=== PATIENT | female | born 1990 | race Caucasian/White ===

== ENCOUNTER 2019-06-01 21:51 | Emergency (ER) | payer OTHER ==
[2019-06-01 22:00] VITALS: RESP 20
[2019-06-01] MEDS ORDERED: SODIUM CHLORIDE 0.9% 1,000 ML IV STA ×2 (22:04→23:24)
[2019-06-01] MEDS ORDERED: METOCLOPRAMIDE 5 MG/ML 2 ML VIAL IVP STA (22:05)
--- NOTE | 2019-06-01 22:17 | ED ---
General Adult HPI - General Chief complaint: Nausea/Vomiting/Diarrhea Stated complaint: Vomiting Time Seen by Provider: 06/01/19 22:02 Source: patient, family Mode of arrival: ambulatory Limitations: no limitations - History of Present Illness Initial comments: Dictation was produced using [employer] dictation software. please excuse any g rammatical, word or spelling errors. Chief Complaint: 29-year-old female presents with nausea vomiting and diarrhea. History of Present Illness: We [id number] female she presents with 2 days of nausea vomiting diarrhea. Patient states she's been a persistent watery diarrhea. She's had more than 10 episodes over the past 48 hours. Patient says had multiple episodes of nonbilious nonbloody emesis. She complains of diffuse abdominal tenderness worse in the lower abdominal area. She states that it's a crampy sensation with constant nature. Denies any vaginal discharge and vaginal bleeding. One week ago patient had intrauterine insemination performed at one of the IVF clinics. States that after the procedure she didn't have any ill effects. Patient has had successful intrauterine insemination twice in the past. Patient has been also having diffuse myalgias. Denies any recent travel. No recent antibiotics. No suspected ingestion of food. Patient's significant other had similar symptoms several days ago however not as severe. The ROS documented in this emergency department record has been reviewed and confirmed by me. Those systems with pertinent positive or negative responses have been documented in the HPI. All other systems are other negative and/or noncontributory. PHYSICAL EXAM: General Impression: Alert and oriented x3, not in acute distress HEENT: Normocephalic atraumatic, extra-ocular movements intact, pupils equal and reactive to light bilaterally, dry mucous membranes Cardiovascular: Heart regular rate and rhythm, S1&S2 audible, no murmurs, rubs or gallops Chest: Lungs clear to auscultation bilaterally, no rhonchi, no wheeze, no rales Abdomen: Bowel sounds present, abdomen soft, non-tender, non-distended, no organomegaly Musculoskeletal: Pulses present and equal in all extremities, no peripheral edema Motor: no focal deficits noted Neurological: CN II-XII grossly intact, no focal motor or sensory deficits noted Skin: Intact with no visualized rashes Psych: Normal affect and mood ED course: 29-year-old feel presents with clinical presentation consistent with gastroenteritis. Vital signs upon arrival shows heart rate of 102, rest of vital signs within acceptable limits. Laboratory evaluation obtained. Hemoglobin of 16.6 likely from hemoconcentration. Rest of CBC is grossly unremarkable. Metabolic panel shows things within acceptable limits. Urinalysis shows 4+ ketones no other acute processes. Discussed with patient that because she is having lower abdominal symptoms I recommend performing a pelvic exam. Patient refused and didn't feel like it was indicated. Patient's coca presentation is likely secondary gastroenteritis. Her beta Quant is elevated at 6.5 which would indicate that patient is early . She requests that she wanted to be discharged home. She completed 1 L normal saline bolus of fluid. She is tolerating by mouth at bedside. She has not had any episodes of diarrhea here in emergency department. Patient wants to be discharged without any further care. She understands the s ignificance and importance of adequate hydration especially around the . Patient understands that we did not do a complete workup and still wants to be discharged. Patient prescription for antinausea medications and antidiarrhea medications. Patient told to start taking vitamins. - Related Data Home Medications Medication Instructions Recorded Confirmed Citalopram Hydrobromide [CeleXA] 20 mg PO DAILY 06/01/19 06/01/19 Levothyroxine Sodium [Synthroid] 100 mcg PO DAILY 06/01/19 06/01/19 Progesterone, Micronized 200 mg PO BID 06/01/19 06/01/19 [Progesterone] Previous Rx's Medication Instructions Recorded Doxylamine/Pyridoxine HCl (B6) 1 tab PO TID PRN #12 tab 06/01/19 [Silvia Seth 10-10 mg Tablet] Loperamide HCl [Loperamide] 2 mg PO TID PRN #12 capsule 06/01/19 Allergies Allergy/AdvReac Type Severity Reaction Status Date / Time morphine Allergy Swelling Verified 06/01/19 22:44 Review of Systems ROS Statement: Those systems with pertinent positive or pertinent negative responses have been documented in the HPI. ROS Other: All systems not noted in ROS Statement are negative. Past Medical History Past Medical History: No Reported History Additional Past Medical History / Comment(s): 4th degree after delivery of first child History of Any Multi-Drug Resistant Organisms: None Reported Past Surgical History: Section Past Anesthesia/Blood Transfusion Reactions: No Reported Reaction Past Psychological History: Anxiety Smoking Status: Never smoker Past Alcohol Use History: None Reported Past Drug Use History: Unable to Obtain - Past Family History Father History Unknown: Yes Family Medical History: No Reported History General Exam Limitations: no limitations Course Vital Signs 06/01/19 21:57 Temperature 99 F Pulse Rate 102 H Respiratory 20 Rate Blood Pressure 100/74 O2 Sat by Pulse 100 Oximetry Medical Decision Making - Lab Data Result diagrams: 06/01/19 22:24 06/01/19 22:24 Lab Results 06/01/19 06/01/19 06/01/19 Range/Units 22:05 22:24 22:24 WBC 10.0 (3.8-10.6) k/uL RBC 5.48 H (3.80-5.40) m/uL Hgb 16.6 H (11.4-16.0) gm/dL Hct 48.6 H (34.0-46.0) % MCV 88.6 (80.0-100.0) fL MCH 30.3 (25.0-35.0) pg MCHC 34.2 (31.0-37.0) g/dL RDW 12.5 (11.5-15.5) % Plt Count 214 (150-450) k/uL Neutrophils % 91 % Lymphocytes % 4 % Monocytes % 2 % Eosinophils % 1 % Basophils % 1 % Neutrophils # 9.1 H (1.3-7.7) k/uL Lymphocytes # 0.4 L (1.0-4.8) k/uL Monocytes # 0.2 (0-1.0) k/uL Eosinophils # 0.1 (0-0.7) k/uL Basophils # 0.1 (0-0.2) k/uL Sodium 141 (137-145) mmol/L Potassium 3.9 (3.5-5.1) mmol/L Chloride 105 (98-107) mmol/L Carbon Dioxide 22 (22-30) mmol/L Anion Gap 14 mmol/L BUN 18 H (7-17) mg/dL Creatinine 0.89 (0.52-1.04) mg/dL Est GFR (CKD-EPI)AfAm >90 (>60 ml/min/1.73 sqM) Est GFR (CKD-EPI)NonAf 87 (>60 ml/min/1.73 sqM) Glucose 103 H (74-99) mg/dL Calcium 9.7 (8.4-10.2) mg/dL Magnesium 1.6 (1.6-2.3) mg/dL Total Bilirubin 1.1 (0.2-1.3) mg/dL AST 24 (14-36) U/L ALT 18 (9-52) U/L Alkaline Phosphatase 78 (38-126) U/L Total Protein 8.6 H (6.3-8.2) g/dL Albumin 4.9 (3.5-5.0) g/dL HCG, Quant 6.5 mIU/mL Urine Color Yellow Urine Appearance Cloudy H (Clear) Urine pH 5.5 (5.0-8.0) Ur Specific [employer] 1.034 (1.001-1.035) Urine Protein 1+ H (Negative) Urine Glucose (UA) Negative (Negative) Urine Ketones 4+ H (Negative) Urine Blood Negative (Negative) Urine Nitrite Negative (Negative) Urine Bilirubin Negative (Negative) Urine Urobilinogen <2.0 (<2.0) mg/dL Ur Leukocyte Esterase Negative (Negative) Urine RBC 2 (0-5) /hpf Urine WBC 5 (0-5) /hpf Ur Squamous Epith Cells 4 (0-4) /hpf Urine Bacteria Rare H (None) /hpf Urine Mucus Many H (None) /hpf Disposition Clinical Impression: Gastroenteritis Disposition: HOME SELF-CARE Condition: Good Instructions (If sedation given, give patient instructions): Acute Diarrhea (ED), Acute Nausea and Vomiting (ED) Additional Instructions: take vitamins, follow up with [facility] Prescriptions: Doxylamine/Pyridoxine HCl (B6) [Silvia Seth 10-10 mg Tablet] 1 tab PO TID PRN #12 tab PRN Reason: Nausea Loperamide HCl [Loperamide] 2 mg PO TID PRN #12 capsule PRN Reason: Diarrhea Is patient prescribed a controlled substance at d/c from ED?: No Referrals: Devi Pickens MD [Primary Care Provider] - 1-2 days Time of Disposition: 23:44
[2019-06-01 22:58] LABS: Basophils # (A) 0.1 k/uL (0-0.2); Basophils % (A) 1 %; Eosinophils # (A) 0.1 k/uL (0-0.7); Eosinophils % (A) 1 %; HCT 48.6 % (34.0-46.0); HGB 16.6 gm/dL (11.4-16.0); Lymphocytes # (A) 0.4 k/uL (1.0-4.8); Lymphocytes % (A) 4 %; MCH 30.3 pg (25.0-35.0); MCHC 34.2 g/dL (31.0-37.0); MCV 88.6 fL (80.0-100.0); Mean Platelet Volume 7.4; Monocytes # (A) 0.2 k/uL (0-1.0); Monocytes % (A) 2 %; Neutrophils # (A) 9.1 k/uL (1.3-7.7); Neutrophils % (A) 91 %; Platelet Count 214 k/uL (150-450); RBC 5.48 m/uL (3.80-5.40); RDW 12.5 % (11.5-15.5)
[2019-06-01 22:59] LABS: Appearance,Urine Cloudy (Clear); Bacteria,Urine Rare /hpf; Bilirubin,Urine Negative (Negative); Blood,Urine Negative (Negative); Color,Urine Yellow; Glucose,Urine (UA) Negative (Negative); Ketones,Urine 4+ (Negative); Leukocyte Esterase,Urine Negative (Negative); Mucus,Urine Many /hpf; Nitrite,Urine Negative (Negative); PH, Urine 5.5 (5.0-8.0); Protein,Urine 1+ (Negative); RBC,Urine 2 /hpf (0-5); Specific Gravity,Urine 1.034 (1.001-1.035); Squamous Epithelial Cell,Urine 4 /hpf (0-4); Urobilinogen,Urine <2.0 mg/dL (<2.0); WBC,Urine 5 /hpf (0-5)
[2019-06-01 23:06] LABS: ALT 18 U/L (9-52); AST 24 U/L (14-36); African American GFR (CKD) >90 (>60 ml/min/1.73 sqM); Albumin 4.9 g/dL (3.5-5.0); Alkaline Phosphatase 78 U/L (38-126); Anion Gap 14 mmol/L; Blood Urea Nitrogen 18 mg/dL (7-17); Calcium 9.7 mg/dL (8.4-10.2); Carbon Dioxide 22 mmol/L (22-30); Chloride 105 mmol/L (98-107); Glucose 103 mg/dL (74-99); Magnesium 1.6 mg/dL (1.6-2.3); Potassium 3.9 mmol/L (3.5-5.1); Sodium 141 mmol/L (137-145); Total Bilirubin 1.1 mg/dL (0.2-1.3); Total Protein 8.6 g/dL (6.3-8.2)
[2019-06-01 23:23] LABS: HCG,Quantitative Serum 6.5 mIU/mL
[2019-06-01 23:46] VITALS: BP 118/64; PULSE 101; TEMP 97.7
== END 2019-06-01 23:51 | disposition home or self-care (01) ==
LOC: EC 21:51
DX: K52.9 Noninfective gastroenteritis and colitis, unspecified (principal); M79.10 Myalgia, unspecified site; F41.9 Anxiety disorder, unspecified; Z79.890 Hormone replacement therapy; Z79.899 Other long term (current) drug therapy; Z88.5 Allergy status to narcotic agent; Z53.29 Procedure and treatment not carried out because of patient's decision for other reasons
CPT/HCPCS: 36415; 80053; 83735; 85025; 81001; 84702; 99284; 96374; 96361; J2765

== ENCOUNTER 2019-08-30 14:50 | Emergency (ER) | payer OTHER ==
[2019-08-30] MEDS ORDERED: SODIUM CHLORIDE 0.9% 2,000 ML IV STA (16:35)
[2019-08-30] MEDS ORDERED: ONDANSETRON 4 MG/2 ML VIAL IVP STA (16:35)
[2019-08-30] MEDS ORDERED: FAMOTIDINE 20 MG/2 ML VIAL IV STA (16:37)
--- NOTE | 2019-08-30 16:39 | ED ---
General Adult HPI - General Chief complaint: Nausea/Vomiting/Diarrhea Stated complaint: 16 wks / Dehydration Time Seen by Provider: 08/30/19 16:10 Source: patient, RN notes reviewed Mode of arrival: ambulatory Limitations: no limitations - History of Present Illness Initial comments: Patient is a pleasant 29-year-old female presenting to the emergency Department with complaints of vomiting. Symptoms have been occurring for the past 3 months. Patient is proximal he 16 weeks gravid. Patient complains of recurrent nausea and vomiting and has been diagnosed with hyperemesis gravidarum. Patient does see Dr. Farrar. Patient denies any pelvic pain or vaginal bleeding. patient diarrhea. Patient has had some promethazine without improvement of symptoms. - Related Data Home Medications Medication Instructions Recorded Confirmed Citalopram Hydrobromide [CeleXA] 20 mg PO DAILY 06/01/19 06/01/19 Levothyroxine Sodium [Synthroid] 100 mcg PO DAILY 06/01/19 06/01/19 Progesterone, Micronized 200 mg PO BID 06/01/19 06/01/19 [Progesterone] Previous Rx's Medication Instructions Recorded Doxylamine/Pyridoxine HCl (B6) 1 tab PO TID PRN #12 tab 06/01/19 [Silvia Seth 10-10 mg Tablet] Loperamide HCl [Loperamide] 2 mg PO TID PRN #12 capsule 06/01/19 Oseltamivir [Tamiflu] 75 mg PO Q12HR #9 cap 08/30/19 Allergies Allergy/AdvReac Type Severity Reaction Status Date / Time morphine Allergy Swelling Verified 06/01/19 22:44 Review of Systems ROS Statement: Those systems with pertinent positive or pertinent negative responses have been documented in the HPI. ROS Other: All systems not noted in ROS Statement are negative. Constitutional: Reports: fever (Fever last night with upper respiratory symptoms similar to her child) Eyes: Denies: eye pain ENT: Reports: congestion. Denies: ear pain Respiratory: Reports: cough Cardiovascular: Denies: palpitations Endocrine: Denies: fatigue Gastrointestinal: Reports: nausea, vomiting Genitourinary: Denies: dysuria Musculoskeletal: Denies: back pain Skin: Denies: rash Neurological: Denies: weakness Past Medical History Past Medical History: No Reported History Additional Past Medical History / Comment(s): 4th degree after delivery of first child History of Any Multi-Drug Resistant Organisms: None Reported Past Surgical History: Section Past Anesthesia/Blood Transfusion Reactions: No Reported Reaction Past Psychological History: Anxiety Smoking Status: Never smoker Past Alcohol Use History: None Reported Past Drug Use History: Unable to Obtain - Past Family History Father History Unknown: Yes Family Medical History: No Reported History General Exam Limitations: no limitations General appearance: alert, in no apparent distress Head exam: Present: normocephalic Eye exam: Present: normal appearance, PERRL ENT exam: Present: normal oropharynx Neck exam: Present: normal inspection Respiratory exam: Present: normal lung sounds bilaterally Cardiovascular Exam: Present: tachycardia GI/Abdominal exam: Present: soft. Absent: distended, tenderness Extremities exam: Present: normal inspection Neurological exam: Present: alert Psychiatric exam: Present: normal affect, normal mood Skin exam: Present: normal color Course Vital Signs 08/30/19 08/30/19 08/30/19 15:01 18:15 20:04 Temperature 98.1 F 100.9 F H Pulse Rate 121 H 111 H 103 H Respiratory 18 18 16 Rate Blood Pressure 114/78 123/72 121/72 O2 Sat by Pulse 97 100 100 Oximetry Medical Decision Making - Medical Decision Making Patient reevaluated and updated. Patient was eating soup in bed. - Lab Data Result diagrams: 08/30/19 16:12 08/30/19 16:12 Lab Results 08/30/19 08/30/19 08/30/19 Range/Units 16:12 16:12 18:00 WBC 5.2 (3.8-10.6) k/uL RBC 4.63 (3.80-5.40) m/uL Hgb 14.2 (11.4-16.0) gm/dL Hct 41.2 (34.0-46.0) % MCV 88.9 (80.0-100.0) fL MCH 30.7 (25.0-35.0) pg MCHC 34.5 (31.0-37.0) g/dL RDW 13.1 (11.5-15.5) % Plt Count 190 (150-450) k/uL Neutrophils % 82 % Lymphocytes % 6 % Monocytes % 8 % Eosinophils % 0 % Basophils % 3 % Neutrophils # 4.3 (1.3-7.7) k/uL Lymphocytes # 0.3 L (1.0-4.8) k/uL Monocytes # 0.4 (0-1.0) k/uL Eosinophils # 0.0 (0-0.7) k/uL Basophils # 0.2 (0-0.2) k/uL Sodium 137 (137-145) mmol/L Potassium 4.0 (3.5-5.1) mmol/L Chloride 105 (98-107) mmol/L Carbon Dioxide 20 L (22-30) mmol/L Anion Gap 12 mmol/L BUN 7 (7-17) mg/dL Creatinine 0.60 (0.52-1.04) mg/dL Est GFR (CKD-EPI)AfAm >90 (>60 ml/min/1.73 sqM) Est GFR (CKD-EPI)NonAf >90 (>60 ml/min/1.73 sqM) Glucose 82 (74-99) mg/dL Calcium 9.4 (8.4-10.2) mg/dL Total Bilirubin 0.8 (0.2-1.3) mg/dL AST 26 (14-36) U/L ALT 14 (4-34) U/L Alkaline Phosphatase 81 (38-126) U/L Total Protein 7.8 (6.3-8.2) g/dL Albumin 4.3 (3.5-5.0) g/dL Lipase 56 (23-300) U/L HCG, Quant 41148.6 mIU/mL Urine Color Yellow Urine Appearance Clear (Clear) Urine pH 5.5 (5.0-8.0) Ur Specific [place] 1.032 (1.001-1.035) Urine Protein 1+ H (Negative) Urine Glucose (UA) Negative (Negative) Urine Ketones 4+ H (Negative) Urine Blood Negative (Negative) Urine Nitrite Negative (Negative) Urine Bilirubin Negative (Negative) Urine Urobilinogen 2.0 (<2.0) mg/dL Ur Leukocyte Esterase Negative (Negative) Urine RBC 6 H (0-5) /hpf Urine WBC 3 (0-5) /hpf Ur Squamous Epith Cells 2 (0-4) /hpf Hyaline Casts 1 (0-2) /lpf Urine Mucus Many H (None) /hpf Influenza Type A RNA (Not Detectd) Influenza Type B (PCR) (Not Detectd) 01/10/20 Range/Units 18:00 WBC (3.8-10.6) k/uL RBC (3.80-5.40) m/uL Hgb (11.4-16.0) gm/dL Hct (34.0-46.0) % MCV (80.0-100.0) fL MCH (25.0-35.0) pg MCHC (31.0-37.0) g/dL RDW (11.5-15.5) % Plt Count (150-450) k/uL Neutrophils % % Lymphocytes % % Monocytes % % Eosinophils % % Basophils % % Neutrophils # (1.3-7.7) k/uL Lymphocytes # (1.0-4.8) k/uL Monocytes # (0-1.0) k/uL Eosinophils # (0-0.7) k/uL Basophils # (0-0.2) k/uL Sodium (137-145) mmol/L Potassium (3.5-5.1) mmol/L Chloride (98-107) mmol/L Carbon Dioxide (22-30) mmol/L Anion Gap mmol/L BUN (7-17) mg/dL Creatinine (0.52-1.04) mg/dL Est GFR (CKD-EPI)AfAm (>60 ml/min/1.73 sqM) Est GFR (CKD-EPI)NonAf (>60 ml/min/1.73 sqM) Glucose (74-99) mg/dL Calcium (8.4-10.2) mg/dL Total Bilirubin (0.2-1.3) mg/dL AST (14-36) U/L ALT (4-34) U/L Alkaline Phosphatase (38-126) U/L Total Protein (6.3-8.2) g/dL Albumin (3.5-5.0) g/dL Lipase (23-300) U/L HCG, Quant mIU/mL Urine Color Urine Appearance (Clear) Urine pH (5.0-8.0) Ur Specific [place] (1.001-1.035) Urine Protein (Negative) Urine Glucose (UA) (Negative) Urine Ketones (Negative) Urine Blood (Negative) Urine Nitrite (Negative) Urine Bilirubin (Negative) Urine Urobilinogen (<2.0) mg/dL Ur Leukocyte Esterase (Negative) Urine RBC (0-5) /hpf Urine WBC (0-5) /hpf Ur Squamous Epith Cells (0-4) /hpf Hyaline Casts (0-2) /lpf Urine Mucus (None) /hpf Influenza Type A RNA Not Detected (Not Detectd) Influenza Type B (PCR) Detected H (Not Detectd) Disposition Clinical Impression: Hyperemesis gravidarum, Influenza Disposition: HOME SELF-CARE Condition: Stable Instructions (If sedation given, give patient instructions): Influenza (ED), Hyperemesis Gravidarum (ED) Additional Instructions: Please follow-up with your COMPLIANCE NURSE as well as primary care physician in the next couple days for recheck. Return for uncontrolled fevers, difficulty breathing, uncontrolled vomiting, worsening symptoms or other concerns. Prescription has been sent to [facility] pharmacy Prescriptions: Oseltamivir [Tamiflu] 75 mg PO Q12HR #9 cap Is patient prescribed a controlled substance at d/c from ED?: No Referrals: Devi Pickens MD [Primary Care Provider] - 1-2 days Yinka Kam MD [STAFF PHYSICIAN] - 1-2 days Time of Disposition: 20:31
[2019-08-30 17:12] LABS: Basophils # (A) 0.2 k/uL (0-0.2); Basophils % (A) 3 %; Eosinophils % (A) 0 %; HCT 41.2 % (34.0-46.0); HGB 14.2 gm/dL (11.4-16.0); Lymphocytes # (A) 0.3 k/uL (1.0-4.8); Lymphocytes % (A) 6 %; MCH 30.7 pg (25.0-35.0); MCHC 34.5 g/dL (31.0-37.0); MCV 88.9 fL (80.0-100.0); Mean Platelet Volume 10.6; Monocytes # (A) 0.4 k/uL (0-1.0); Monocytes % (A) 8 %; Neutrophils # (A) 4.3 k/uL (1.3-7.7); Neutrophils % (A) 82 %; Platelet Count 190 k/uL (150-450); RBC 4.63 m/uL (3.80-5.40); RDW 13.1 % (11.5-15.5); WBC 5.2 k/uL (3.8-10.6)
[2019-08-30 17:14] LABS: ALT 14 U/L (4-34); AST 26 U/L (14-36); African American GFR (CKD) >90 (>60 ml/min/1.73 sqM); Albumin 4.3 g/dL (3.5-5.0); Alkaline Phosphatase 81 U/L (38-126); Anion Gap 12 mmol/L; Blood Urea Nitrogen 7 mg/dL (7-17); Calcium 9.4 mg/dL (8.4-10.2); Carbon Dioxide 20 mmol/L (22-30); Chloride 105 mmol/L (98-107); Glucose 82 mg/dL (74-99); Non-African American GFR(CKD) >90 (>60 ml/min/1.73 sqM); Sodium 137 mmol/L (137-145); Total Bilirubin 0.8 mg/dL (0.2-1.3); Total Protein 7.8 g/dL (6.3-8.2)
[2019-08-30] MEDS ORDERED: ACETAMINOPHEN TAB 500 MG TAB PO STA (17:39)
[2019-08-30 18:16] VITALS: TEMP 100.9
[2019-08-30 18:24] LABS: HCG,Quantitative Serum 82611.6 mIU/mL
[2019-08-30 19:58] LABS: Appearance,Urine Clear (Clear); Bilirubin,Urine Negative (Negative); Blood,Urine Negative (Negative); Color,Urine Yellow; Glucose,Urine (UA) Negative (Negative); Hyaline Casts,Urine 1 /lpf (0-2); Ketones,Urine 4+ (Negative); Leukocyte Esterase,Urine Negative (Negative); Mucus,Urine Many /hpf; Nitrite,Urine Negative (Negative); PH, Urine 5.5 (5.0-8.0); Protein,Urine 1+ (Negative); RBC,Urine 6 /hpf (0-5); Specific Gravity,Urine 1.032 (1.001-1.035); Squamous Epithelial Cell,Urine 2 /hpf (0-4); WBC,Urine 3 /hpf (0-5)
[2019-08-30 20:08] VITALS: BP 121/72
[2019-08-30] MEDS ORDERED: OSELTAMIVIR 75 MG CAP PO STA (20:33)
[2019-08-30 21:10] VITALS: PULSE 96; RESP 18
== END 2019-08-30 21:11 | disposition home or self-care (01) ==
LOC: EC 14:50
DX: O99.512 Diseases of the respiratory system complicating pregnancy, second trimester (principal); J11.1 Influenza due to unidentified influenza virus with other respiratory manifestations; O21.0 Mild hyperemesis gravidarum; O99.89 Other specified diseases and conditions complicating pregnancy, childbirth and the puerperium; R00.0 Tachycardia, unspecified; R19.7 Diarrhea, unspecified; O99.342 Other mental disorders complicating pregnancy, second trimester; F41.9 Anxiety disorder, unspecified; Z88.5 Allergy status to narcotic agent; Z79.890 Hormone replacement therapy; Z79.899 Other long term (current) drug therapy; Z98.890 Other specified postprocedural states; Z3A.16 16 weeks gestation of pregnancy
CPT/HCPCS: 99284; 96374; 96375; 96361; 36415; 80053; 83690; 85025; 81001; 84702; 87502; J2405

== ENCOUNTER → 2019-09-02 | Outpatient (CLI) | payer OTHER ==
[~2019-09-02] MED LIST: SODIUM CHLORIDE 0.9% 1,000 ML IV ONE; SODIUM CHLORIDE 0.9% 1,000 ML IV SCH
[2019-09-02 15:01] VITALS: BP 121/85; PULSE 54; RESP 16; TEMP 98.3
== END | disposition home or self-care (01) ==
LOC: PROCWHC3 14:14
PROVIDERS: ATTEND Obstetrics & Gynecology
DX: Z34.82 Encounter for supervision of other normal pregnancy, second trimester (principal); J10.1 Influenza due to other identified influenza virus with other respiratory manifestations
CPT/HCPCS: 96360; 96361

== ENCOUNTER 2020-02-11 09:55 | Inpatient (IN) | payer OTHER ==
[2020-02-06 14:56] VITALS: BMI 27.3
[2020-02-11] MEDS ORDERED: CITRIC ACID-SODIUM CITRATE 15 ML CUP PO ONE (10:12)
[2020-02-11] MEDS ORDERED: LACTATED RINGERS 1,000 ML IV ONE (10:12)
[2020-02-11 10:43] LABS: Basophils % (A) 0 %; Eosinophils # (A) 0.1 k/uL (0-0.7); Eosinophils % (A) 1 %; HCT 37.5 % (34.0-46.0); HGB 12.5 gm/dL (11.4-16.0); Lymphocytes % (A) 10 %; MCH 27.2 pg (25.0-35.0); MCHC 33.3 g/dL (31.0-37.0); MCV 81.7 fL (80.0-100.0); Mean Platelet Volume 9.2; Monocytes # (A) 0.5 k/uL (0-1.0); Monocytes % (A) 6 %; Neutrophils # (A) 7.7 k/uL (1.3-7.7); Neutrophils % (A) 81 %; Platelet Count 193 k/uL (150-450); RDW 15.3 % (11.5-15.5); WBC 9.5 k/uL (3.8-10.6)
--- NOTE | 2020-02-11 12:09 | P.HPOB ---
History of Present Illness H&P Date: 02/11/20 Chief Complaint: 39-0/7 weeks, previous section, requesting repeat The patient is a 30-year-old 3 para 2001, in her first delivery, had a significant fourth degree laceration and subsequently requested deliveries for each thereafter. As result she underwent section for her second and is now requesting repeat. Her pregnancies have been achieved with in vitro fertilization and that his established her due dates. She otherwise is known to have history of hypothyroidism on Synthroid. On labor and delivery, all signs reassuring. Group B strep status is negative. Obstetrical history: 3 para 2001 with 1 term vaginal delivery with fourth degree laceration followed by a term section done electively. Current statistics are listed in history of present illness. EDC of 02/18/2020 was established by in vitro fertilization dating parameters. Laboratory workup demonstrates a blood type of O+ with a negative antibody screen. Rubella status is immune. The remainder of the laboratory workup was within normal limits. One hour Glucola was normal and group B strep status is negative. Gynecologic history: Unremarkable with no history of any infections to include STDs. Review of Systems Review of systems is confined to history of present illness. Past Medical History Past Medical History: No Reported History Additional Past Medical History / Comment(s): hyperemesis, prev hypothyroid, 4th degree after delivery of first child History of Any Multi-Drug Resistant Organisms: None Reported Past Surgical History: Section Past Anesthesia/Blood Transfusion Reactions: No Reported Reaction Past Psychological History: Anxiety Smoking Status: Never smoker Past Alcohol Use History: None Reported Past Drug Use History: None Reported - Past Family History Father History Unknown: Yes Family Medical History: No Reported History Medications and Allergies Home Medications Medication Instructions Recorded Confirmed Type Esomeprazole Magnesium [NexIUM] 250 mg PO DAILY 02/06/20 02/11/20 History Iron 27 mg PO DAILY 02/06/20 02/11/20 History Promethazine [Phenergan] 25 mg PO DAILY 02/06/20 02/11/20 History Zolpidem [Ambien] 2.5 mg PO HS 02/06/20 02/11/20 History Allergies Allergy/AdvReac Type Severity Reaction Status Date / Time morphine Allergy Swelling Verified 02/11/20 10:07 Exam Vital Signs Temp Pulse Resp BP Pulse Ox 02/11/20 10:16 97.9 F 115 H 18 144/85 97 Intake and Output 02/10/20 02/11/20 02/11/20 22:59 06:59 14:59 Other: Weight 79.379 kg In general, this is a well-developed, well-nourished white female in no acute d istress. Her heart has a regular rhythm and rate without murmur. Her lungs are clear to auscultation bilaterally in all cummings. Her abdomen is gravid, nondistended, has normal active bowel sounds, is soft, nontender, and without any palpable masses aside from uterine fundus. Her extremities are without any cyanosis, clubbing, or edema and are nontender to palpation bilaterally. Digital cervical examination is deferred. Results Result Diagrams: 02/11/20 10:20 Assessment and Plan (1) Term Current Visit: Yes Status: Acute Code(s): Z34.90 - ENCNTR FOR SUPRVSN OF NORMAL , UNSP, UNSP TRIMESTER SNOMED Code(s): 24196564 (2) Previous section Current Visit: Yes Status: Acute Code(s): Z98.891 - HISTORY OF UTERINE SCAR FROM PREVIOUS SURGERY SNOMED Code(s): 519117368 Plan: We will proceed to the operating room room for repeat low transverse section. The risks and complications have been discussed and she has understood and agrees to proceed.
[2020-02-11] MEDS ORDERED: PHENYLEPHRINE-0.9% NACL SYG 1 MG/10 ML SYRINGE ONE (12:12)
[2020-02-11] MEDS ORDERED: WATER FOR INJECTION, STERILE 10 ML VIAL IV ONE (12:12)
[2020-02-11] MEDS ORDERED: DEXAMETHASONE SOD PHOSPHATE 10 MG/ML 1 ML VIAL ONE (12:12)
[2020-02-11] MEDS ORDERED: fentaNYL (PF) 50 MCG/ML 2 ML AMP ONE (12:12)
[2020-02-11] MEDS ORDERED: HYDROmorphone (PF) 1 MG/ML ONE (12:12)
[2020-02-11] MEDS ORDERED: KETOROLAC 30 MG/ML 1 ML VIAL ONE (12:12)
[2020-02-11] MEDS ORDERED: OXYTOCIN 10 UNIT/ML 1 ML VIAL ONE (12:12)
[2020-02-11] MEDS ORDERED: ONDANSETRON 4 MG/2 ML VIAL ONE (12:12)
[2020-02-11] MEDS ORDERED: ONDANSETRON 4 MG/2 ML VIAL IVP PRN (12:44)
[2020-02-11] MEDS ORDERED: NALOXONE 0.4 MG/ML 1 ML VIAL IV PRN (12:44)
[2020-02-11] MEDS ORDERED: diphenhydrAMINE 50 MG/ML 1 ML VIAL IVP PRN ×2 (12:44→12:59)
[2020-02-11] MEDS ORDERED: LANOLIN CREAM 5 GM TUBE TOPICAL PRN (12:59)
[2020-02-11] MEDS ORDERED: HYDROcodone/APAP 5-325MG 1 EACH TAB PO PRN (12:59)
[2020-02-11] MEDS ORDERED: ACETAMINOPHEN IV (For NPO) 1,000 MG in EMPTY BAG 1 BAG IVPB ONE (12:59)
[2020-02-11] MEDS ORDERED: diphenhydrAMINE 50 MG CAP PO PRN (12:59)
[2020-02-11] MEDS ORDERED: ACETAMINOPHEN TAB 325 MG TAB PO PRN (12:59)
[2020-02-11] MEDS ORDERED: ZOLPIDEM 5 MG TAB PO PRN (12:59)
[2020-02-11] MEDS ORDERED: diphenhydrAMINE 25 MG CAP PO PRN (12:59)
[2020-02-11] MEDS ORDERED: METOCLOPRAMIDE 5 MG/ML 2 ML VIAL IVP PRN (12:59)
[2020-02-11] MEDS ORDERED: OXYTOCIN 20 UNITS/1000 ML NS 1,000 ML IV SCH (13:00)
--- NOTE | 2020-02-11 13:11 | P.OP ---
Date of Procedure: 02/11/20 Preoperative Diagnosis: #1. 39-0/7 weeks, previous section, requesting repeat Postoperative Diagnosis: Same Procedure(s) Performed: #1. Repeat low transverse section Anesthesia: spinal Surgeon: Yinka Kam Cook Relief #1: Starr Brown Estimated Blood Loss (ml): 400 IV fluids (ml): 1,000 Urine output (ml): 100 Pathology: none sent Condition: stable Disposition: floor Operative Findings: The patient was taken to the operating room where she was delivered of a viable 8 lbs. 3 oz. baby boy with Apgars of 9 at 1 minute and 9 at 5 minutes delivered in the left occiput anterior position. The placenta was delivered spontaneously, intact, and grossly normal with a grossly normal three-vessel cord. The uterus, tubes, and ovaries were entirely normal to inspection. There was minimal scarring throughout the entire procedure. Description of Procedure: The patient was prepped and draped in usual fashion after spinal anesthesia was administered by the anesthesiologist. A Pfannenstiel incision was made through pre-existing scar and extended into the abdominal cavity without difficulty. The bladder peritoneum was elevated, incised, and reflected distally. A 2 cm incision was made in the transverse plane of the lower uterine segment to enter the uterus at which time a significant amount of clear fluid was noted. The incision was extended in both directions using the bandage scissors. The head was delivered up and through the incision where the nose and mouth were thoroughly suctioned. Remainder of the was delivered onto the field where the cord was doubly clamped, cut, and the infant passed resuscitative measures with weight and Apgars as noted above. A segment of cord was doubly clamped, cut, and set aside should cord gases become necessary. The placenta was delivered spontaneously and intact as noted above. The uterus was exteriorized and the interior cavity of the uterus swept of any remaining placental or membranous fragments. The margins of the incision were grasped with Zambrano clamps and the incision closed with a single running locking stitch of 0 chromic catgut from margin to margin. There was one point of bleeding at the site of a sinus near the right angle of the incision which was made hemostatic with a erpynk-ov-purdj stitch of 0 chromic catgut. The posterior cul-de-sac was suctioned with a guard as well as a laparotomy sponge. The incision was reexamined and found to be hemostatic. The uterus was replaced within the abdominal cavity and the gutters swept of any remaining blood, fluid, or clot. The surgical site was again reexamined and found to be hemostatic. The parietal peritoneum was loosely reapproximated in the layer of muscles examined and made hemostatic with the Bovie. The fascia was closed with a single running stitch of 0 Vicryl from from margin to margin. The subcutaneous tissues were irrigated, made hemostatic with the Bovie and not closed as they were very thin. The skin was reapproximated with a running subcuticular stitch of 4-0 Vicryl from margin to margin followed by half-inch Steri-Strips placed with Mastisol. Estimated blood loss for the case was approximately 400 mL. There were no complications. All sponge, instrument, and needle counts were correct. The patient tolerated the procedure well and proceeded to the recovery room in stable condition. Both mother and infant are resting comfortably in recovery.
[2020-02-11] MEDS: HYDROmorphone PCA 10 MG/50 ML BAG IV PRN ×2 (14:27→23:07)
[2020-02-11] MEDS ORDERED: BUTORPHANOL 1 MG/ML 1 ML VIAL IV STA (14:47)
[2020-02-11] MEDS: LACTATED RINGERS 1,000 ML IV SCH ×4 (18:48→23:11)
[2020-02-11] MEDS: KETOROLAC 30 MG/ML 1 ML VIAL IVP PRN (18:48)
[2020-02-11] MEDS: SENNOSIDES-DOCUSATE SODIUM 1 EACH TAB PO SCH (23:11)
[2020-02-12] MEDS: KETOROLAC 30 MG/ML 1 ML VIAL IVP PRN (01:31)
[2020-02-12] MEDS: LACTATED RINGERS 1,000 ML IV SCH ×2 (02:45→14:28)
[2020-02-12 06:26] LABS: Basophils % (A) 0 %; Eosinophils # (A) 0.1 k/uL (0-0.7); Eosinophils % (A) 1 %; HCT 35.3 % (34.0-46.0); HGB 11.8 gm/dL (11.4-16.0); Lymphocytes # (A) 1.2 k/uL (1.0-4.8); Lymphocytes % (A) 9 %; MCH 27.9 pg (25.0-35.0); MCHC 33.4 g/dL (31.0-37.0); MCV 83.4 fL (80.0-100.0); Mean Platelet Volume 8.9; Monocytes # (A) 0.8 k/uL (0-1.0); Monocytes % (A) 6 %; Neutrophils # (A) 11.4 k/uL (1.3-7.7); Neutrophils % (A) 84 %; Platelet Count 160 k/uL (150-450); RBC 4.24 m/uL (3.80-5.40); RDW 15.3 % (11.5-15.5); WBC 13.7 k/uL (3.8-10.6)
[2020-02-12] MEDS: HYDROmorphone PCA 10 MG/50 ML BAG IV PRN (07:37)
--- NOTE | 2020-02-12 08:44 | P.PNOBGPC ---
Subjective - Subjective Patient reports: Reports appetite normal, Reports voiding normally, Reports pain well controlled, Reports ambulating normally : doing well Objective - Vital Signs Latest vital signs: Vital Signs Temp Pulse Resp BP Pulse Ox 02/12/20 08:00 97.6 F 73 16 117/68 02/12/20 04:00 97.6 F 61 16 101/81 97 02/12/20 00:00 97.9 F 59 L 14 115/61 97 02/11/20 20:00 98.5 F 65 16 132/68 96 02/11/20 18:55 16 98 02/11/20 18:30 97.6 F 80 16 117/70 02/11/20 17:44 98 02/11/20 15:36 18 98 02/11/20 15:00 99.4 F 90 18 121/71 02/11/20 14:29 95 22 127/76 98 02/11/20 14:00 75 22 153/66 98 02/11/20 13:45 87 20 131/67 99 02/11/20 13:44 18 98 02/11/20 13:30 93 18 126/59 02/11/20 13:14 93 18 132/60 97 02/11/20 13:05 98 02/11/20 13:04 98 02/11/20 12:59 96.8 F L 98 18 140/86 96 02/11/20 10:16 97.9 F 115 H 18 144/85 97 Intake and Output 02/11/20 02/12/20 02/12/20 22:59 06:59 14:59 Intake Total 400 Output Total 1100 300 Balance -1100 100 Intake: Oral 400 Output: Urine 1100 300 Uretheral ([place]) 1000 Other: Voiding Method Indwelling Catheter # Voids 0 - Exam Extremities: Present: normal Abdomen: Present: normal appearance, soft. Absent: distention, tenderness Incision: Present: normal, dry, intact Uterus: Present: normal, firm (The uterine fundus is tonic and appropriately tender well below the umbilicus.) - Labs Labs: Abnormal Lab Results - Last 24 Hours (Table) 02/12/20 Range/Units 05:40 WBC 13.7 H (3.8-10.6) k/uL Neutrophils # 11.4 H (1.3-7.7) k/uL Assessment and Plan (1) Term Current Visit: Yes Status: Acute Code(s): Z34.90 - ENCNTR FOR SUPRVSN OF NORMAL , UNSP, UNSP TRIMESTER SNOMED Code(s): 48236704 (2) Previous section Current Visit: Yes Status: Acute Code(s): Z98.891 - HISTORY OF UTERINE SCAR FROM PREVIOUS SURGERY SNOMED Code(s): 992582213 (3) S/P section Current Visit: Yes Status: Acute Code(s): Z98.891 - HISTORY OF UTERINE SCAR FROM PREVIOUS SURGERY SNOMED Code(s): 538497018 Plan: Continue routine and postoperative care. I have strongly encouraged the patient and the hallways routinely. I would anticipate discharge home tomorrow pending no complications.
[2020-02-12] MEDS: SENNOSIDES-DOCUSATE SODIUM 1 EACH TAB PO SCH ×2 (10:42→19:39)
[2020-02-12] MEDS: IBUPROFEN 600 MG TAB PO PRN ×3 (11:11→23:18)
[2020-02-12] MEDS: HYDROcodone/APAP 7.5-325MG 1 EACH TAB PO PRN ×2 (13:48→19:39)
[2020-02-12 23:43] VITALS: PULSE 72
[2020-02-13] MEDS: SIMETHICONE 80 MG CHEWABLE PO PRN ×2 (02:14→08:42)
[2020-02-13] MEDS: HYDROcodone/APAP 7.5-325MG 1 EACH TAB PO PRN (02:14)
[2020-02-13] MEDS: IBUPROFEN 600 MG TAB PO PRN ×2 (04:25→13:09)
[2020-02-13 08:04] VITALS: BP 110/72; RESP 17; TEMP 98.1
[2020-02-13] MEDS: SENNOSIDES-DOCUSATE SODIUM 1 EACH TAB PO SCH ×2 (08:04→08:42)
--- NOTE | 2020-02-13 08:59 | P.DS ---
Providers Date of admission: 02/11/20 09:55 Expected date of discharge: 02/13/20 Attending physician: Yinka Kam Primary care physician: Devi Pickens - Discharge Diagnosis(es) (1) Term Current Visit: Yes Status: Acute (2) Previous section Current Visit: Yes Status: Acute (3) S/P section Current Visit: Yes Status: Acute Hospital Course: The patient is a 30-year-old 3 para 2001 who presents the hospital for repeat low transverse section at 39-0/7 weeks. Her has been uncomplicated and group B strep status is negative. On labor and delivery, all signs reassuring. She was taken the operating room where she was delivered of a viable 8 lbs. 3 oz. baby boy with Apgars of 9 at 1 minute and 9 at 5 minutes. Her postoperative course was unremarkable with vital signs being stable and her temperature was afebrile throughout. She was deemed stable for discharge on post and postoperative day #2. She was discharged home to follow-up in the office in 2 weeks for an incision check and 6 weeks routinely. Discharge instructions included calling for any significantly increased bleeding or foul- smelling lochia, significantly increased fever abdominal pain, perineal complaints, breast complaints, incisional complaints, or anything else that concerned her. She was additionally instructed to have nothing in the vagina for at least 6 weeks time to include intercourse. She is instructed to do no heavy lifting over the same period of time. She was last instructed to do no driving until off of all pain medications or 2 weeks' time, whichever came fi rst. She understood her instructions and agrees to follow up as noted above. Discharge medications included continued vitamins as she has opted to breast-feed as well as a prescription for [place] 5/325 mg, 1-2 by mouth every 6 hours when necessary pain, #20 dispensed with no refills. Maternal blood type is O+ and rubella status is immune. Discharge hemoglobin and hematocrit were 11.8 and 35.3 respectively. Procedures: #1. Repeat low transverse section Patient Condition at Discharge: Stable Plan - Discharge Summary Discharge Rx Participant: Yes New Discharge Prescriptions: No Action Promethazine [Phenergan] 25 mg PO DAILY Esomeprazole Magnesium [NexIUM] 250 mg PO DAILY Zolpidem [Ambien] 2.5 mg PO HS Iron 27 mg PO DAILY Discharge Medication List Esomeprazole Magnesium [NexIUM] 250 mg PO DAILY 02/06/20 [History] Iron 27 mg PO DAILY 02/06/20 [History] Promethazine [Phenergan] 25 mg PO DAILY 02/06/20 [History] Zolpidem [Ambien] 2.5 mg PO HS 02/06/20 [History] Follow up Appointment(s)/Referral(s): Yinka Kam MD [STAFF PHYSICIAN] - 2 Weeks Discharge Disposition: HOME SELF-CARE
== END 2020-02-13 15:21 | disposition home or self-care (01) | DRG 788 ==
LOC: 4FBP 09:55
PROVIDERS: ADMIT Obstetrics & Gynecology; ATTEND Obstetrics & Gynecology
PROC: 10D00Z1 Extraction of Products of Conception, Low, Open Approach (ICD-10-PCS; principal; 2020-02-11 12:00)
DX: O34.211 Maternal care for low transverse scar from previous cesarean delivery (principal); O99.284 Endocrine, nutritional and metabolic diseases complicating childbirth; O99.62 Diseases of the digestive system complicating childbirth; E03.9 Hypothyroidism, unspecified; K21.9 Gastro-esophageal reflux disease without esophagitis; N85.8 Other specified noninflammatory disorders of uterus; Z3A.39 39 weeks gestation of pregnancy; Z37.0 Single live birth; Z79.890 Hormone replacement therapy; Z86.59 Personal history of other mental and behavioral disorders; Z79.899 Other long term (current) drug therapy; Z88.5 Allergy status to narcotic agent
CPT/HCPCS: 85025; 86850; 86900; 86901

== ENCOUNTER 2020-02-19 01:43 | Emergency (ER) | payer OTHER ==
[2020-02-19 01:56] VITALS: TEMP 98.5
[2020-02-19] MEDS ORDERED: SODIUM CHLORIDE 0.9% 1,000 ML IV STA ×2 (02:01)
--- NOTE | 2020-02-19 02:07 | ED ---
Female Urogenital HPI - General Chief complaint: Vaginal Bleeding Stated complaint: Post pain Time Seen by Provider: 02/19/20 01:59 Source: patient, RN notes reviewed, old records reviewed Mode of arrival: ambulatory Limitations: no limitations - History of Present Illness Initial comments: This is a 28-year-old female DF for evaluation abdominal pain and vaginal bleeding after . Patient feels lightheaded and dizzy not feeling well. Symptoms of been progressing for the last 23 days was exactly a week ago. Fevers no headache no chest pain no shortness of breath. Patient admits to mild abdominal cramping but the pain and spotting. No other medical history takes no medications currently MD Complaint: vaginal bleeding, other (Recent ) -: hour(s) Location: suprapubic Severity: moderate Severity scale (1-10): 7 Quality: cramping Consistency: constant Improves with: none Worsens with: none Patient : No Associated Symptoms: vaginal bleeding - Related Data Home Medications Medication Instructions Recorded Confirmed Esomeprazole Magnesium [NexIUM] 250 mg PO DAILY 02/06/20 02/11/20 Iron 27 mg PO DAILY 02/06/20 02/11/20 Promethazine [Phenergan] 25 mg PO DAILY 02/06/20 02/11/20 Zolpidem [Ambien] 2.5 mg PO HS 02/06/20 02/11/20 Allergies Allergy/AdvReac Type Severity Reaction Status Date / Time morphine Allergy Swelling Verified 02/19/20 01:56 Review of Systems ROS Statement: Those systems with pertinent positive or pertinent negative responses have been documented in the HPI. ROS Other: All systems not noted in ROS Statement are negative. Past Medical History Past Medical History: No Reported History Additional Past Medical History / Comment(s): hyperemesis, prev hypothyroid, 4th degree after delivery of first child History of Any Multi-Drug Resistant Organisms: None Reported Past Surgical History: Section Past Anesthesia/Blood Transfusion Reactions: No Reported Reaction Past Psychological History: Anxiety Smoking Status: Never smoker Past Alcohol Use History: None Reported Past Drug Use History: None Reported - Past Family History Father History Unknown: Yes Family Medical History: No Reported History General Exam Limitations: no limitations General appearance: anxious Head exam: Present: atraumatic, normocephalic, normal inspection Eye exam: Present: normal appearance, PERRL, EOMI. Absent: scleral icterus, conjunctival injection, periorbital swelling ENT exam: Present: normal exam, mucous membranes moist Neck exam: Present: normal inspection. Absent: tenderness, meningismus, lymphadenopathy Respiratory exam: Present: normal lung sounds bilaterally. Absent: respiratory distress, wheezes, rales, rhonchi, stridor Cardiovascular Exam: Present: regular rate, normal rhythm, normal heart sounds. Absent: systolic murmur, diastolic murmur, rubs, gallop, clicks GI/Abdominal exam: Present: soft, normal bowel sounds. Absent: distended, tenderness, guarding, rebound, rigid Extremities exam: Present: normal inspection, full ROM, normal capillary refill. Absent: tenderness, pedal edema, joint swelling, calf tenderness Back exam: Present: normal inspection Neurological exam: Present: alert, oriented X3, CN II-XII intact Psychiatric exam: Present: normal affect, normal mood Skin exam: Present: warm, dry, intact, normal color. Absent: rash Course Vital Signs 02/19/20 02/19/20 02/19/20 01:54 02:10 02:30 Temperature 98.5 F Pulse Rate 52 L 51 L 47 L Respiratory 18 16 16 Rate Blood Pressure 132/88 129/84 134/85 O2 Sat by Pulse 100 98 97 Oximetry 02/19/20 02/19/20 02/19/20 03:00 03:30 04:27 Temperature Pulse Rate 50 L 48 L 50 L Respiratory 16 16 16 Rate Blood Pressure 120/83 133/85 138/96 O2 Sat by Pulse 98 100 99 Oximetry - Reevaluation(s) Reevaluation #1: Medical record is reviewed Patient is in no distress - Consultations Consultation #1: Spoke with on-call MAINTENANCE PORTER, fall patient in the office tomorrow Medical Decision Making - Medical Decision Making 30 female DF for bleeding with recent . No acute findings no significant blood loss here in the ER will follow up with OB tomorrow - Lab Data Result diagrams: 02/19/20 02:05 02/19/20 02:05 Lab Results 02/19/20 02/19/20 02/19/20 Range/Units 02:04 02:05 02:05 WBC 8.1 (3.8-10.6) k/uL RBC 5.10 (3.80-5.40) m/uL Hgb 13.6 (11.4-16.0) gm/dL Hct 42.4 (34.0-46.0) % MCV 83.1 (80.0-100.0) fL MCH 26.6 (25.0-35.0) pg MCHC 32.0 (31.0-37.0) g/dL RDW 15.4 (11.5-15.5) % Plt Count 286 (150-450) k/uL Neutrophils % 80 % Lymphocytes % 11 % Monocytes % 4 % Eosinophils % 4 % Basophils % 0 % Neutrophils # 6.5 (1.3-7.7) k/uL Lymphocytes # 0.9 L (1.0-4.8) k/uL Monocytes # 0.3 (0-1.0) k/uL Eosinophils # 0.3 (0-0.7) k/uL Basophils # 0.0 (0-0.2) k/uL PT 9.4 (9.0-12.0) sec INR 0.9 (<1.2) APTT 23.8 (22.0-30.0) sec Sodium (137-145) mmol/L Potassium (3.5-5.1) mmol/L Chloride (98-107) mmol/L Carbon Dioxide (22-30) mmol/L Anion Gap mmol/L BUN (7-17) mg/dL Creatinine (0.52-1.04) mg/dL Est GFR (CKD-EPI)AfAm (>60 ml/min/1.73 sqM) Est GFR (CKD-EPI)NonAf (>60 ml/min/1.73 sqM) Glucose (74-99) mg/dL Plasma Lactic Acid Pankaj (0.7-2.0) mmol/L Calcium (8.4-10.2) mg/dL Phosphorus (2.5-4.5) mg/dL Magnesium (1.6-2.3) mg/dL Total Bilirubin (0.2-1.3) mg/dL AST (14-36) U/L ALT (4-34) U/L Alkaline Phosphatase (38-126) U/L Creatine Kinase (30-135) U/L Troponin I (0.000-0.034) ng/mL NT-Pro-B Natriuret Pep pg/mL Total Protein (6.3-8.2) g/dL Albumin (3.5-5.0) g/dL TSH (0.465-4.680) mIU/L Urine Color Urine Appearance (Clear) Urine pH (5.0-8.0) Ur Specific [place] (1.001-1.035) Urine Protein (Negative) Urine Glucose (UA) (Negative) Urine Ketones (Negative) Urine Blood (Negative) Urine Nitrite (Negative) Urine Bilirubin (Negative) Urine Urobilinogen (<2.0) mg/dL Ur Leukocyte Esterase (Negative) Urine RBC (0-5) /hpf Urine WBC (0-5) /hpf Ur Squamous Epith Cells (0-4) /hpf Blood Type O Positive Blood Type Recheck O Pos Bld Type Recheck Status No Antibody Screen NEGATIVE Spec Expiration Date 02/22/2020230302/19/20 02/19/20 02/19/20 Range/Units 02:05 02:05 02:05 WBC (3.8-10.6) k/uL RBC (3.80-5.40) m/uL Hgb (11.4-16.0) gm/dL Hct (34.0-46.0) % MCV (80.0-100.0) fL MCH (25.0-35.0) pg MCHC (31.0-37.0) g/dL RDW (11.5-15.5) % Plt Count (150-450) k/uL Neutrophils % % Lymphocytes % % Monocytes % % Eosinophils % % Basophils % % Neutrophils # (1.3-7.7) k/uL Lymphocytes # (1.0-4.8) k/uL Monocytes # (0-1.0) k/uL Eosinophils # (0-0.7) k/uL Basophils # (0-0.2) k/uL PT (9.0-12.0) sec INR (<1.2) APTT (22.0-30.0) sec Sodium 138 (137-145) mmol/L Potassium 4.4 (3.5-5.1) mmol/L Chloride 106 (98-107) mmol/L Carbon Dioxide 23 (22-30) mmol/L Anion Gap 9 mmol/L BUN 13 (7-17) mg/dL Creatinine 0.77 (0.52-1.04) mg/dL Est GFR (CKD-EPI)AfAm >90 (>60 ml/min/1.73 sqM) Est GFR (CKD-EPI)NonAf >90 (>60 ml/min/1.73 sqM) Glucose 92 (74-99) mg/dL Plasma Lactic Acid Pankaj 0.8 (0.7-2.0) mmol/L Calcium 10.0 (8.4-10.2) mg/dL Phosphorus 4.3 (2.5-4.5) mg/dL Magnesium 2.0 (1.6-2.3) mg/dL Total Bilirubin 0.4 (0.2-1.3) mg/dL AST 21 (14-36) U/L ALT 14 (4-34) U/L Alkaline Phosphatase 167 H (38-126) U/L Creatine Kinase 86 (30-135) U/L Troponin I <0.012 (0.000-0.034) ng/mL NT-Pro-B Natriuret Pep pg/mL Total Protein 7.5 (6.3-8.2) g/dL Albumin 4.0 (3.5-5.0) g/dL TSH (0.465-4.680) mIU/L Urine Color Urine Appearance (Clear) Urine pH (5.0-8.0) Ur Specific [place] (1.001-1.035) Urine Protein (Negative) Urine Glucose (UA) (Negative) Urine Ketones (Negative) Urine Blood (Negative) Urine Nitrite (Negative) Urine Bilirubin (Negative) Urine Urobilinogen (<2.0) mg/dL Ur Leukocyte Esterase (Negative) Urine RBC (0-5) /hpf Urine WBC (0-5) /hpf Ur Squamous Epith Cells (0-4) /hpf Blood Type Blood Type Recheck Bld Type Recheck Status Antibody Screen Spec Expiration Date 02/19/20 02/19/20 02/19/20 Range/Units 03:43 03:43 03:47 WBC (3.8-10.6) k/uL RBC (3.80-5.40) m/uL Hgb (11.4-16.0) gm/dL Hct (34.0-46.0) % MCV (80.0-100.0) fL MCH (25.0-35.0) pg MCHC (31.0-37.0) g/dL RDW (11.5-15.5) % Plt Count (150-450) k/uL Neutrophils % % Lymphocytes % % Monocytes % % Eosinophils % % Basophils % % Neutrophils # (1.3-7.7) k/uL Lymphocytes # (1.0-4.8) k/uL Monocytes # (0-1.0) k/uL Eosinophils # (0-0.7) k/uL Basophils # (0-0.2) k/uL PT (9.0-12.0) sec INR (<1.2) APTT (22.0-30.0) sec Sodium (137-145) mmol/L Potassium (3.5-5.1) mmol/L Chloride (98-107) mmol/L Carbon Dioxide (22-30) mmol/L Anion Gap mmol/L BUN (7-17) mg/dL Creatinine (0.52-1.04) mg/dL Est GFR (CKD-EPI)AfAm (>60 ml/min/1.73 sqM) Est GFR (CKD-EPI)NonAf (>60 ml/min/1.73 sqM) Glucose (74-99) mg/dL Plasma Lactic Acid Pankaj (0.7-2.0) mmol/L Calcium (8.4-10.2) mg/dL Phosphorus (2.5-4.5) mg/dL Magnesium (1.6-2.3) mg/dL Total Bilirubin (0.2-1.3) mg/dL AST (14-36) U/L ALT (4-34) U/L Alkaline Phosphatase (38-126) U/L Creatine Kinase (30-135) U/L Troponin I (0.000-0.034) ng/mL NT-Pro-B Natriuret Pep 220 pg/mL Total Protein (6.3-8.2) g/dL Albumin (3.5-5.0) g/dL TSH 3.850 (0.465-4.680) mIU/L Urine Color Light Yellow Urine Appearance Clear (Clear) Urine pH 5.5 (5.0-8.0) Ur Specific [place] 1.027 (1.001-1.035) Urine Protein Negative (Negative) Urine Glucose (UA) Negative (Negative) Urine Ketones Negative (Negative) Urine Blood Moderate H (Negative) Urine Nitrite Negative (Negative) Urine Bilirubin Negative (Negative) Urine Urobilinogen <2.0 (<2.0) mg/dL Ur Leukocyte Esterase Small H (Negative) Urine RBC <1 (0-5) /hpf Urine WBC 6 H (0-5) /hpf Ur Squamous Epith Cells <1 (0-4) /hpf Blood Type Blood Type Recheck Bld Type Recheck Status Antibody Screen Spec Expiration Date - EKG Data -: EKG Interpreted by Me (EKG shows sinus tachycardia rate of 53, SC 144 QRS 86 QTC 365) - Radiology Data Radiology results: report reviewed (CT head and pelvis negative for acute disease), image reviewed Disposition Clinical Impression: Dysfunctional uterine bleeding Disposition: HOME SELF-CARE Condition: Good Instructions (If sedation given, give patient instructions): Dysmenorrhea (ED) Is patient prescribed a controlled substance at d/c from ED?: No Referrals: Devi Pickens MD [Primary Care Provider] - 1-2 days
[2020-02-19 02:13] LABS: Basophils % (A) 0 %; Eosinophils # (A) 0.3 k/uL (0-0.7); Eosinophils % (A) 4 %; HCT 42.4 % (34.0-46.0); HGB 13.6 gm/dL (11.4-16.0); Lymphocytes # (A) 0.9 k/uL (1.0-4.8); Lymphocytes % (A) 11 %; MCH 26.6 pg (25.0-35.0); MCV 83.1 fL (80.0-100.0); Mean Platelet Volume 7.7; Monocytes # (A) 0.3 k/uL (0-1.0); Monocytes % (A) 4 %; Neutrophils # (A) 6.5 k/uL (1.3-7.7); Neutrophils % (A) 80 %; Platelet Count 286 k/uL (150-450); RDW 15.4 % (11.5-15.5); WBC 8.1 k/uL (3.8-10.6)
[2020-02-19 02:22] LABS: INR 0.9 (<1.2); Partial Thromboplastin Time 23.8 sec (22.0-30.0); Prothrombin Time 9.4 sec (9.0-12.0)
[2020-02-19 02:23] LABS: ALT 14 U/L (4-34); AST 21 U/L (14-36); African American GFR (CKD) >90 (>60 ml/min/1.73 sqM); Alkaline Phosphatase 167 U/L (38-126); Anion Gap 9 mmol/L; Blood Urea Nitrogen 13 mg/dL (7-17); Carbon Dioxide 23 mmol/L (22-30); Chloride 106 mmol/L (98-107); Creatine Kinase 86 U/L (30-135); Glucose 92 mg/dL (74-99); Non-African American GFR(CKD) >90 (>60 ml/min/1.73 sqM); Phosphorus 4.3 mg/dL (2.5-4.5); Potassium 4.4 mmol/L (3.5-5.1); Sodium 138 mmol/L (137-145); Total Bilirubin 0.4 mg/dL (0.2-1.3); Total Protein 7.5 g/dL (6.3-8.2)
--- NOTE | 2020-02-19 02:41 | CT ---
EXAMINATION TYPE: CT abdomen pelvis w con DATE OF EXAM: 02/19/2020 COMPARISON: None HISTORY: post pain with vaginal bleeding CT DLP: 795.8 mGycm Automated exposure control for dose reduction was used. CONTRAST: Performed with IV Contrast, patient injected with 100 mL of Isovue 300. Lung bases are clear of infiltrate. There is no pleural effusion. Heart size is normal. There is no p ericardial effusion. There is 8 mm cyst in the right lobe of the liver. Spleen is intact. The bile ducts are not dilated. Stomach appears normal. There is no pancreatic mass. Gallbladder appears normal. There is no adrenal mass. Kidneys show satisfactory contrast opacification. There is no hydronephrosi s. Delayed images show normal renal excretion. Ureters are not dilated. Appendix is posterior and manas ears normal. Bladder distends smoothly. There is no inguinal hernia. Uterus is large related to recen t . There is no free fluid in the pelvis. Uterus is anteverted. There is subcutaneous densit y over the lower anterior abdomen related to incision. Endometrium measures 9 mm. There is no mesenteric edema. There is no ascites or free air. There is no evidence of a bowel obstru ction. There is broad-based umbilical hernia that contains transverse colon. Lumbar vertebra have normal spacing and alignment. Posterior elements are intact. Bony pelvis is inta ct. IMPRESSION: No significant abnormality. No endometrial thickening or significant fluid to suggest retained produc ts or blood clot.
[2020-02-19] MEDS ORDERED: KETOROLAC 30 MG/ML 1 ML VIAL IVP STA (02:58)
[2020-02-19 03:47] VITALS: RESP 16
[2020-02-19] MEDS ORDERED: ACETAMINOPHEN TAB 500 MG TAB PO STA (04:03)
[2020-02-19 04:05] LABS: Appearance,Urine Clear (Clear); Bilirubin,Urine Negative (Negative); Blood,Urine Moderate (Negative); Color,Urine Light Yellow; Glucose,Urine (UA) Negative (Negative); Ketones,Urine Negative (Negative); Leukocyte Esterase,Urine Small (Negative); Nitrite,Urine Negative (Negative); PH, Urine 5.5 (5.0-8.0); Protein,Urine Negative (Negative); RBC,Urine <1 /hpf (0-5); Specific Gravity,Urine 1.027 (1.001-1.035); Squamous Epithelial Cell,Urine <1 /hpf (0-4); Urobilinogen,Urine <2.0 mg/dL (<2.0); WBC,Urine 6 /hpf (0-5)
--- NOTE | 2020-02-19 04:18 | XR ---
EXAMINATION TYPE: XR chest 1V portable DATE OF EXAM: 02/19/2020 COMPARISON: NONE HISTORY: Chest pain TECHNIQUE: Single view FINDINGS: Heart and mediastinum are normal. Lungs are clear. Diaphragm is normal. Bony thorax appears normal. IMPRESSION: Normal chest.
[2020-02-19 04:30] VITALS: BP 138/96; PULSE 50
== END 2020-02-19 04:30 | disposition home or self-care (01) ==
LOC: EC 01:43
DX: N93.8 Other specified abnormal uterine and vaginal bleeding (principal); R42 Dizziness and giddiness; R10.32 Left lower quadrant pain; Z88.5 Allergy status to narcotic agent
CPT/HCPCS: 36415; 93005; 86900; 86901; 83880; 80053; 84443; 82550; 83605; 83735; 84100; 84484; 85025; 85610; 85730; 86850; 81001; 87086; 71045; 74177; 99285; 96374; 96361 ×2; J1885; Q9967